=== PATIENT | male | born 1985 | race Caucasian/White ===

== ENCOUNTER 2017-02-17 13:01 | Emergency (ER) | payer SELFPAY ==
[2017-02-17 13:02] VITALS: BP 114/70; PULSE 70; RESP 16; TEMP 98.4; O2SAT 98
--- NOTE | 2017-02-17 19:06 | PD ---
HPI Chief Complaint: Skin Problem Time Seen by Provider: 18:50 Travel History International Travel<30 days: No Contact w/Intl Traveler<30days: No Traveled to known affect area: No History of Present Illness HPI 31yo M with no significant PMH presents to the ED with an "abscess" in the back of his head for 2 weeks. Pt has he has been having a mild left sided headache since having this for 2 weeks. Denies any trauma, fever, chest pain, sob, visual changes, n/v, abdominal pain, focal weakness or numbness. Pt said he has had this in different parts of his body before. PFSH Past Medical History Medical History: Denies Significant Hx Past Surgical History Surgical History: No Previous Surgery Social History Alcohol Use: No Tobacco Use: Yes (1 per 2 weeks) Substance Use: No Allergies-Medications (Allergen,Severity, Reaction): Coded Allergies: No Known Allergies (Unverified , 02/17/17) Review of Systems Except as stated in HPI: all other systems reviewed are Neg Physical Exam Narrative GENERAL: 31yo M not in distress. SKIN: Focused skin assessment warm/dry. HEAD: +3 pustules in occiput with 2 of them with yellow point in middle. EYES: Pupils equal and round at 3mm bilaterally. EOMI. ENT: No nasal bleeding or discharge. Mucous membranes pink and moist. NECK: Trachea midline. No JVD. CARDIOVASCULAR: Regular rate and rhythm. No murmur appreciated. RESPIRATORY: No accessory muscle use. Clear to auscultation. Breath sounds equal bilaterally. GASTROINTESTINAL: Abdomen soft, non-tender, nondistended. MUSCULOSKELETAL: No obvious deformities. No clubbing. No cyanosis. No edema. NEUROLOGICAL: Awake and alert. No obvious cranial nerve deficits. Motor grossly within normal limits. Normal speech. Sensation intact. PSYCHIATRIC: Appropriate mood and affect; insight and judgment normal. Data Data Last Documented VS Vital Signs Date Time Temp Pulse Resp B/P (MAP) Pulse Ox O2 Delivery O2 Flow Rate FiO2 02/17/17 13:02 98.4 70 16 114/70 (85) 98 Orders Orders Acetaminophen (Tylenol) (02/17/17 20:00) MDM Medical Decision Making Medical Screen Exam Complete: Yes Emergency Medical Condition: Yes Differential Diagnosis Pustules vs. sinus headache vs. migraine headache Narrative Course 31yo M with pustules in back of his head. Said it is recurrent and has been in other areas of his body. Pt given acetaminophen and states his headache has resolved. Pt wants it drained so I clean it with betadine and used 23 gauge needle to drain the pustule. Drained purulent discharge. It is very superficial. Pt reevaluated at bedside and there is no bleeding. Pain has also improved. Return precautions given. Diagnosis Primary Impression: Pustule Patient Instructions: General Instructions Departure Forms: Tests/Procedures Additional Instructions: Please follow up with [facility] in 3-7 days. Return to the ED if symptoms worsen. Med/Other Pt SpecificInfo: Prescription(s) given Scripts Acetaminophen (Tylenol) 325 Mg Tab 650 MG PO Q6H Y for PAIN SCALE 1 TO 4, #20 TAB 0 Refills Prov: Deepti Barr DO 02/17/17 Sulfamethoxazole-Trimethoprim (Bactrim DS) 800-160 Mg Tab 1 TAB PO BID for Infection, #14 TAB 0 Refills Prov: Deepti Barr DO 02/17/17 Disposition: 01 DISCHARGE HOME Condition: Stable Deepti Barr DO Feb 17, 2017 19:06
[2017-02-17] MEDS ORDERED: ACETAMINOPHEN 325 MG TAB PO ONE (20:00)
[2017-02-17] MEDS ORDERED: TYLE325T PO (21:07)
[2017-02-17] MEDS ORDERED: BACT800T5 PO (21:07)
== END 2017-02-17 21:36 | disposition home or self-care (01) ==
LOC: NEPD 13:01
DX: L08.9 Local infection of the skin and subcutaneous tissue, unspecified (principal)
CPT/HCPCS: 99283